=== PATIENT | female | born 1975 | race Caucasian/White ===

== ENCOUNTER → 2023-07-25 | Day surgery (SDC) | payer OTHER ==
[~2023-07-25] MED LIST: ACETAMINOPHEN 1000 MG/100 ML 100 ML IV ONE; FENTANYL CITRATE/PF 100MCG/2 ML INJ ONE; IRON PO; LACTATED RINGER'S 1,000 ML ONE; PRENATAL VITAM1 EACH PO; PROVERA5 MG PO; SILVER NITRATE SWABS ONE; TRAMADOL HCL 50 MG TAB ONE
[2023-07-25 06:11] LABS: BASOPHILS % 0.7 % (0.0-1.0); EOSINOPHILS # (AUTO) 0.1 (0.0-0.4); EOSINOPHILS % 2.9 % (0.0-6.0); HEMATOCRIT 28.9 % (34.2-44.1); HEMOGLOBIN 8.5 g/dL (12.0-16.0); LYMPHOCYTES # (AUTO) 1.7 (1.0-3.2); LYMPHOCYTES % 39.5 % (18.0-39.1); MEAN CORPUSCULAR HEMOGLOBIN 22.1 pg (28-32); MEAN CORPUSCULAR HGB CONC 29.4 g/dL (31-35); MEAN CORPUSCULAR VOLUME 75.1 fL (81-99); MONOCYTES # (AUTO) 0.5 (0.2-0.8); MONOCYTES % 12.4 % (4.4-11.3); NEUTROPHILS # (AUTO) 1.9 (2.1-6.9); NEUTROPHILS % 44.3 % (38.7-80.0); PLATELET COUNT 143 x10e3/uL (140-360); RED BLOOD COUNT 3.85 x10e6/uL (3.6-5.1); WHITE BLOOD COUNT 4.18 x10e3/uL (4.8-10.8)
[2023-07-25 06:39] LABS: ANION GAP 14.9 mmol/L (8-16); CALCIUM 9.1 mg/dL (8.4-10.2); CREATININE, SERUM 0.8 mg/dL (0.57-1.11); POTASSIUM 3.9 mmol/L (3.5-5.1)
[2023-07-25 08:56] LABS: BASOPHILS % (MANUAL) 3 % (0-1.5); EOSINOPHILS % (MANUAL) 1 % (0-7); LYMPHOCYTES % (MANUAL) 41 % (19-48); MONOCYTES % (MANUAL) 11 % (3.4-9.0); NEUTROPHILS % (MANUAL) 43 % (40-74); REACTIVE LYMPHOCYTES 1
[2023-07-25 08:58] LABS: PLATELET ESTIMATE SLIGHTLY DECREASED; PLATELET MORPHOLOGY COMMENT NORMAL; RBC MORPHOLOGY COMMENT NORMAL
[2023-07-25 09:27] VITALS: BP 163/90; PULSE 52; RESP 14; O2SAT 99
== END | disposition home or self-care (01) ==
LOC: OR 05:12
PROVIDERS: ATTEND Obstetrics & Gynecology
DX: N93.9 Abnormal uterine and vaginal bleeding, unspecified (principal); D64.9 Anemia, unspecified
CPT/HCPCS: 36415; 58563; 80048; 81025; 85025; 86850; 86900; 88305; J0131; J3010; J7121

== ENCOUNTER 2024-05-18 11:01 | Observation (INO) | payer OTHER ==
[2024-05-16 11:32] LABS: BASOPHILS % 0.7 % (0.0-1.0); EOSINOPHILS # (AUTO) 0.1 (0.0-0.4); EOSINOPHILS % 2.1 % (0.0-6.0); HEMATOCRIT 36.8 % (34.2-44.1); HEMOGLOBIN 11.6 g/dL (12.0-16.0); LYMPHOCYTES # (AUTO) 1.5 (1.0-3.2); LYMPHOCYTES % 34.4 % (18.0-39.1); MEAN CORPUSCULAR HEMOGLOBIN 30.7 pg (28-32); MEAN CORPUSCULAR HGB CONC 31.5 g/dL (31-35); MEAN CORPUSCULAR VOLUME 97.4 fL (81-99); MONOCYTES # (AUTO) 0.5 (0.2-0.8); MONOCYTES % 11.8 % (4.4-11.3); NEUTROPHILS # (AUTO) 2.2 (2.1-6.9); NEUTROPHILS % 50.8 % (38.7-80.0); PLATELET COUNT 132 x10e3/uL (140-360); RED BLOOD COUNT 3.78 x10e6/uL (3.6-5.1); RED CELL DISTRIBUTION WIDTH 14.3 % (11.7-14.4); WHITE BLOOD COUNT 4.33 x10e3/uL (4.8-10.8)
[2024-05-16 11:50] LABS: BILIRUBIN,URINE NEGATIVE (NEGATIVE); CLARITY,URINE SL CLOUDY (CLEAR); COLOR,URINE YELLOW (YELLOW); GLUCOSE, URINE NEGATIVE (NEGATIVE); KETONES,URINE NEGATIVE (NEGATIVE); LEUKOCYTE ESTERASE ,URINE NEGATIVE (NEGATIVE); NITRITE,URINE NEGATIVE (NEGATIVE); PH,URINE 5.5 (5 - 7); PROTEIN,URINE DIPSTICK NEGATIVE (NEGATIVE); URINE UROBILINOGEN 0.2 mg/dL (0.2 - 1)
[2024-05-16 11:55] LABS: ALANINE AMINOTRANSFERASE 7 IU/L (0-55); ALBUMIN 3.4 g/dL (3.5-5.0); ALBUMIN/GLOBULIN RATIO 0.6 (0.8-2.0); ALKALINE PHOSPHATASE 34 IU/L (40-150); ANION GAP 15.6 mmol/L (8-16); BILIRUBIN,TOTAL 0.3 mg/dL (0.2-1.2); BLOOD UREA NITROGEN 6 mg/dL (7-26); BUN/CREATININE RATIO 6 (6-25); CALCIUM 9.4 mg/dL (8.4-10.2); CARBON DIOXIDE 23 mmol/L (22-29); CHLORIDE 105 mmol/L (98-107); CREATININE, SERUM 0.95 mg/dL (0.57-1.11); EST GLOMERULAR FILTRATION RATE 74 ML/MIN (>=60); GLUCOSE 87 mg/dL (74-118); POTASSIUM 4.6 mmol/L (3.5-5.1); SODIUM 139 mmol/L (136-145); TOTAL PROTEIN 9.1 g/dL (6.5-8.1)
[~2024-05-18] VITALS: Ht 172.7 cm; Wt 99.1 kg
[~2024-05-18 11:01] MED LIST changes: -ACETAMINOPHEN 1000 MG/100 ML 100 ML IV ONE; +BACTRIM DS TAB1 EACH PO; -FENTANYL CITRATE/PF 100MCG/2 ML INJ ONE; -LACTATED RINGER'S 1,000 ML ONE; +MOTRIN200 MG PO; -SILVER NITRATE SWABS ONE; -TRAMADOL HCL 50 MG TAB ONE; +TRANEXAMIC ACI650 MG PO
[2024-05-18] MEDS ORDERED: SUGAMMADEX SODIUM 200 MG/2 ML VIAL IV ONE (11:22)
[2024-05-18] MEDS ORDERED: BUPIVACAINE 0.5%/EPI 30 ML SDV INJ ONE (11:30)
[2024-05-18] MEDS ORDERED: FENTANYL CITRATE/PF 100MCG/2 ML INJ ONE ×2 (11:32→17:35)
[2024-05-18] MEDS ORDERED: CEFAZOLIN SODIUM 2 GM ONE (11:41)
[2024-05-18] MEDS: LACTATED RINGER'S 1,000 ML ONE (11:58)
[2024-05-18] MEDS ORDERED: BUPIVACAINE LIPOSOME/PF 266 MG/20 ML IJ ONE (12:44)
[2024-05-18] MEDS ORDERED: HYDROMORPHONE 2MG/ML ONE ×2 (14:08→16:33)
[2024-05-18] MEDS ORDERED: FIBRIN FROZEN 2 ML SPRAY.GEL TOP ONE (15:09)
[2024-05-18] MEDS ORDERED: FUROSEMIDE INJ 10 MG/ML 4 ML VIAL ONE (15:47)
[2024-05-18] MEDS ORDERED: DEXAMETHASONE SOD PHOS INJ 4 MG/ML SDV ONE (16:33)
[2024-05-18] MEDS ORDERED: ACETAMINOPHEN 1000 MG/100 ML IV ONE (16:33)
[2024-05-18] MEDS ORDERED: LIDOCAINE HCL 2% LOCAL INJ 5 ML SDV VIAL INJ ONE (16:33)
[2024-05-18] MEDS ORDERED: PROPOFOL IV EMULSION 10 MG/ML 20 ML VIAL ONE (16:33)
[2024-05-18] MEDS ORDERED: ROCURONIUM BROMIDE 10 MG/ML 5ML VIAL IV ONE (16:33)
[2024-05-18] MEDS ORDERED: ONDANSETRON HCL INJ 2MG/ML 2ML 2 MG/ML VIAL ONE (16:33)
[2024-05-18] MEDS ORDERED: SUCCINYLCHOLINE CHLORIDE 20 MG/ML 10ML VIAL ONE (16:33)
[2024-05-18] MEDS ORDERED: ACETAMINOPHEN 325 MG TAB PO PRN (16:45)
[2024-05-18] MEDS ORDERED: ONDANSETRON HCL INJ 2MG/ML 2ML 2 MG/ML VIAL IV PRN (16:45)
[2024-05-18] MEDS ORDERED: BISACODYL 10 MG SUPP PR PRN (16:45)
[2024-05-18] MEDS ORDERED: DIPHENHYDRAMINE HCL 25 MG CAP PO PRN (16:45)
[2024-05-18] MEDS: FENTANYL CITRATE/PF 100MCG/2 ML INJ IV ONE (17:35)
[2024-05-18] MEDS: KETOROLAC TROMETHAMINE 30 MG/ML VIAL IM ONE (17:45)
[2024-05-18] MEDS: HYDRALAZINE HCL 20 MG/ML VIAL IV ONE (17:50)
[2024-05-18] MEDS ORDERED: SODIUM CHLORIDE 0.9% INJ 10 ML VIAL ONE (17:54)
[2024-05-18] MEDS ORDERED: BUPIVACAINE 0.25% 30ML SDV ONE (17:54)
[2024-05-18] MEDS ORDERED: HYDRALAZINE HCL 20 MG/ML VIAL ONE (17:59)
[2024-05-18] MEDS: LACTATED RINGER'S 1,000 ML IV SCH (18:28)
[2024-05-18 18:30] VITALS: BP 161/100; PULSE 54; RESP 17; O2SAT 98
[2024-05-18] MEDS: SIMETHICONE 80 MG CHEW PO SCH (18:40)
[2024-05-18] MEDS: KETOROLAC TROMETHAMINE 30 MG/ML VIAL IV SCH (18:40)
[2024-05-18] MEDS: DOCUSATE SODIUM 100 MG CAP PO SCH (18:41)
[2024-05-18 20:13] VITALS: BP 155/101; PULSE 54; RESP 17; TEMP 97; O2SAT 98
[2024-05-18 21:30] VITALS: BP 155/101; PULSE 46; RESP 16; TEMP 98; O2SAT 98
[2024-05-18] MEDS: CEFAZOLIN SODIUM 2 GM in SODIUM CHLORIDE 0.9% 100 ML IV SCH (21:41)
[2024-05-18] MEDS: Morphine 2mg Syringe 2 MG/ML SYR IV PRN (22:39)
[2024-05-19] VITALS (8 sets, daily range): BP systolic 115–144; BP diastolic 70–87; PULSE 60–74; RESP 16–20; TEMP 98–99; O2SAT 96–97
[2024-05-19 06:12] LABS: BASOPHILS % 0.1 % (0.0-1.0); HEMATOCRIT 35.1 % (34.2-44.1); LYMPHOCYTES # (AUTO) 0.6 (1.0-3.2); MEAN CORPUSCULAR HEMOGLOBIN 30.6 pg (28-32); MEAN CORPUSCULAR HGB CONC 31.3 g/dL (31-35); MEAN CORPUSCULAR VOLUME 97.8 fL (81-99); MONOCYTES # (AUTO) 0.6 (0.2-0.8); MONOCYTES % 6.7 % (4.4-11.3); NEUTROPHILS # (AUTO) 7.7 (2.1-6.9); NEUTROPHILS % 85.6 % (38.7-80.0); PLATELET COUNT 159 x10e3/uL (140-360); RED BLOOD COUNT 3.59 x10e6/uL (3.6-5.1); RED CELL DISTRIBUTION WIDTH 14.3 % (11.7-14.4); WHITE BLOOD COUNT 9.01 x10e3/uL (4.8-10.8)
[2024-05-19] MEDS ORDERED: MOTRIN200 MG PO (06:47)
== END 2024-05-19 18:20 | disposition home or self-care (01) ==
LOC: OR 11:01 → PACU V 15:50 → MED/SURG3 18:30
PROVIDERS: ADMIT Obstetrics & Gynecology; ATTEND Obstetrics & Gynecology
DX: N93.9 Abnormal uterine and vaginal bleeding, unspecified (principal); N72 Inflammatory disease of cervix uteri; N85.01 Benign endometrial hyperplasia; N80.03 Adenomyosis of the uterus; N73.6 Female pelvic peritoneal adhesions (postinfective); D26.1 Other benign neoplasm of corpus uteri; D64.9 Anemia, unspecified; E66.01 Morbid (severe) obesity due to excess calories; Z68.33 Body mass index [BMI] 33.0-33.9, adult; Z01.812 Encounter for preprocedural laboratory examination
CPT/HCPCS: 36415 ×2; 58573; 80053; 81003; 84702; 85025 ×2; 86850; 86900; 88307; 94799; C9290; G0378 ×2; J0131; J0330; J0360; J1100; J1170; J1885 ×2; J1940; J2001; J2270; J2405; J2704; J3010; J7050 ×2; J7121 ×2